=== PATIENT | male | born 1995 | race Caucasian/White ===

== ENCOUNTER 2020-07-25 10:28 | Emergency (ER) | payer MEDICAID ==
[~2020-07-25] VITALS: Ht 172.7 cm; Wt 78.0 kg
[2020-07-25] MEDS ORDERED: IBUPROFEN 600MG TABLET PO STA (10:53)
[2020-07-25 11:38] LABS: BASOPHILS % 0.3 % (0.0-2.0); EOSINOPHILS % 0.3 % (0.0-5.0); HEMATOCRIT. 41.6 % (42.0-52.0); LYMPHOCYTES % 7.4 % (20.0-50.0); MEAN CORPUSCULAR HEMOGLOBIN 28.8 pg (28.0-32.0); MEAN CORPUSCULAR VOLUME 85.4 fL (80.0-94.0); MEAN PLATELET VOLUME 7.2 fl (7.4-10.4); MONOCYTES % 5.3 % (2.0-8.0); NEUTROPHILS % 86.7 % (40.0-76.0); PLATELET 213 x1000/uL (130-400); RED BLOOD CELL COUNT 4.87 mill/uL (4.7-6.1); RED CELL DISTRIBUTION WIDTH 13.3 % (11.6-14.6)
[2020-07-25 11:49] LABS: CHLORIDE 107 mEq/L (98-107)
[2020-07-25 14:31] VITALS: BP 123/72
[2020-07-25] MEDS ORDERED: IOHEXOL-350 100 ML BOTTLE ONE (14:32)
== END 2020-07-25 14:39 | disposition home or self-care (01) ==
LOC: ER 11:08
DX: R07.89 Other chest pain (principal); Z03.818 Encounter for observation for suspected exposure to other biological agents ruled out; F12.10 Cannabis abuse, uncomplicated; Z86.19 Personal history of other infectious and parasitic diseases
CPT/HCPCS: 36415; 71275; 80053; 83880; 84484; 85025; 85379; 87635; 93005; 99285; Q9967

== ENCOUNTER 2021-03-22 22:00 | Emergency (ER) | payer MEDICAID ==
[~2021-03-22] VITALS: Ht 172.7 cm; Wt 92.0 kg
[2021-03-23] MEDS ORDERED: VISCOUS LIDOCAINE 2% 15 ML UDC PO STA (00:19)
[2021-03-23] MEDS ORDERED: MAGNESIUM/ALUMINUM HYDROXIDE/SIMETHICONE 30ML UDC PO STA (00:19)
[2021-03-23] MEDS ORDERED: FAMOTIDINE 20MG TABLET PO ONE (00:30)
[2021-03-23 00:47] LABS: BASOPHILS % 0.4 % (0.0-2.0); EOSINOPHILS % 2.2 % (0.0-5.0); HEMOGLOBIN. 16.3 g/dL (14.0-18.0); LYMPHOCYTES % 20.8 % (20.0-50.0); MEAN CORPUSCULAR HEMOGLOBIN 29.6 pg (28.0-32.0); MEAN PLATELET VOLUME 7.1 fl (7.4-10.4); NEUTROPHILS % 71.6 % (40.0-76.0); PLATELET 260 x1000/uL (130-400); RED BLOOD CELL COUNT 5.52 mill/uL (4.7-6.1); RED CELL DISTRIBUTION WIDTH 12.7 % (11.6-14.6)
[2021-03-23 00:51] LABS: CLARITY URINE CLEAR (CLEAR); COLOR URINE YELLOW (YELLOW); KETONES URINE TRACE (NEGATIVE); LEUKOCYTE ESTERASE URINE NEGATIVE (NEGATIVE); NITRITE URINE NEGATIVE (NEGATIVE); OCCULT BLOOD URINE NEGATIVE (NEGATIVE); PH URINE 5.5 (4.5-8.0); PROTEIN URINE NEGATIVE (NEGATIVE); SPECIFIC GRAVITY URINE 1.024 (1.005-1.030); UROBILINOGEN URINE 0.2 E.U./dL (0.2-1.0)
[2021-03-23 00:53] LABS: CHLORIDE 108 mEq/L (98-107)
[2021-03-23 01:36] VITALS: BP 121/80
== END 2021-03-23 01:38 | disposition home or self-care (01) ==
LOC: ER 22:00
DX: R11.2 Nausea with vomiting, unspecified (principal); R94.5 Abnormal results of liver function studies; F12.10 Cannabis abuse, uncomplicated
CPT/HCPCS: 36415; 80053; 81003; 85025; 99284

== ENCOUNTER 2023-03-01 13:51 | Emergency (ER) | payer MEDICAID ==
[~2023-03-01] VITALS: Ht 172.7 cm; Wt 93.0 kg
[2023-03-01 13:53] VITALS: O2SAT 98
[2023-03-01] MEDS ORDERED: LIDOCAINE HCL 1% 20ML VIAL (Pyxis) INJ INFIL ONE (15:00)
[2023-03-01 16:46] VITALS: BP 120/80; PULSE 94; RESP 16; TEMP 98
== END 2023-03-01 16:47 | disposition home or self-care (01) ==
LOC: ER 15:39
DX: S01.21XA Laceration without foreign body of nose, initial encounter (principal); F12.10 Cannabis abuse, uncomplicated; X58.XXXA Exposure to other specified factors, initial encounter; Y93.89 Activity, other specified; Y92.89 Other specified places as the place of occurrence of the external cause; Y99.8 Other external cause status
CPT/HCPCS: 12011; 99282; J3490; Z7610 ×2

== ENCOUNTER 2023-03-08 11:48 | Emergency (ER) | payer MEDICAID ==
[~2023-03-08] VITALS: Ht 172.7 cm; Wt 93.0 kg
[2023-03-08 12:42] VITALS: BP 128/89
== END 2023-03-08 12:41 ==
LOC: ER 11:48
DX: Z48.02 Encounter for removal of sutures (principal)
CPT/HCPCS: 99281; Z7610

== ENCOUNTER 2023-05-23 09:09 | Emergency (ER) | payer MEDICAID ==
[~2023-05-23] VITALS: Ht 172.7 cm; Wt 95.0 kg
[2023-05-23 09:15] VITALS: BP 142/78; PULSE 85; RESP 20; TEMP 98; O2SAT 99
== END 2023-05-23 12:57 | disposition left against medical advice (07) ==
LOC: ER 09:15
DX: J02.9 Acute pharyngitis, unspecified (principal)
CPT/HCPCS: 99281